=== PATIENT | male | born 2000 | race Two or more races ===

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

== ENCOUNTER 2021-09-06 18:20 | Emergency (ER) | payer SELFPAY ==
[~2021-09-06] VITALS: Ht 170.2 cm; Wt 99.0 kg
[2021-09-06] MEDS ORDERED: MORPHINE SULFATE 4 MG/ML CPJ (NOT FOR IM USE) IV STA (20:07)
[2021-09-06] MEDS ORDERED: TETANUS, DIPHTHERIA, PERTUSSIS VAC/PF 0.5ML (>10YR OLD) IM ONE (20:15)
[2021-09-06 20:54] LABS: HEMATOCRIT. 43.4 % (42.0-52.0); HEMOGLOBIN. 14.8 g/dL (14.0-18.0); MEAN CORPUSCULAR HEMOGLOBIN 28.5 pg (28.0-32.0); MEAN CORPUSCULAR VOLUME 83.3 fL (80.0-94.0); MEAN PLATELET VOLUME 8.9 fl (7.4-10.4); PLATELET 229 x1000/uL (130-400); RED BLOOD CELL COUNT 5.21 mill/uL (4.7-6.1); RED CELL DISTRIBUTION WIDTH 12.9 % (11.6-14.6)
[2021-09-06 21:02] LABS: CHLORIDE 106 mEq/L (98-107)
[2021-09-06 21:05] LABS: PROTHROMBIN TIME 10.9 sec (9.6-11.0)
[2021-09-06 21:06] LABS: ETHANOL BLOOD 63 mg/dL
[2021-09-06 21:15] LABS: PLATELET ESTIMATE NORMAL
[2021-09-06] MEDS ORDERED: MORPHINE SULFATE 4 MG/ML CPJ (NOT FOR IM USE) IV ONE (21:45)
[2021-09-06] MEDS ORDERED: IOHEXOL-300 100 ML BOTTLE ONE (23:35)
[2021-09-07] MEDS ORDERED: LIDOCAINE HCL/EPINEPHRINE 1%-EPI 1:100,000 50 ML VIAL INFIL ONE
[2021-09-07] MEDS ORDERED: ONDANSETRON HCL 4MG/2ML INJ IV ONE
[2021-09-07] MEDS ORDERED: LIDOCAINE HCL/EPINEPHRINE 1%-EPI 1:100,000 20 ML VIAL INFIL NR (00:15)
[2021-09-07] MEDS ORDERED: IBUP-2028 MT (00:29)
[2021-09-07] MEDS ORDERED: SULF1TAB48 MT (00:29)
[2021-09-07 00:30] VITALS: BP 114/54
== END 2021-09-07 01:27 | disposition home or self-care (01) ==
LOC: ER 18:20
DX: S01.01XA Laceration without foreign body of scalp, initial encounter (principal); S20.419A Abrasion of unspecified back wall of thorax, initial encounter; V28.0XXA Motorcycle driver injured in noncollision transport accident in nontraffic accident, initial encounter; Y93.89 Activity, other specified; Y92.488 Other paved roadways as the place of occurrence of the external cause
CPT/HCPCS: 36415; 70450; 71045; 72125; 74177; 80053; 80320; 85025; 85610; 90471; 90715; 96374; 96375; 96376; 99285; J2270; J2405; Q9967; G0480

== ENCOUNTER 2021-09-17 14:32 | Emergency (ER) | payer SELFPAY ==
[~2021-09-17] VITALS: Ht 170.2 cm; Wt 91.0 kg
[~2021-09-17 14:32] MED LIST: IBUP-2028 MT; SULF1TAB48 MT
[2021-09-17 14:37] VITALS: BP 100/80
[2021-09-17] MEDS ORDERED: BACITRACIN ZINC OINT UDPKT TOP ONE (16:30)
== END 2021-09-17 16:40 | disposition home or self-care (01) ==
LOC: ER 14:32
DX: Z48.02 Encounter for removal of sutures (principal); S01.01XD Laceration without foreign body of scalp, subsequent encounter; X58.XXXD Exposure to other specified factors, subsequent encounter
CPT/HCPCS: 99283; Z7610